=== PATIENT | female | born 1980 ===

== ENCOUNTER 2017-09-10 03:35 | Inpatient (IN) | payer MEDICAID, SELFPAY ==
[2017-09-10 06:28] VITALS: BMI 29.2
[2017-09-10] MEDS ORDERED: Lactated Ringer's 1,000 ML IV SCH (06:30)
[2017-09-10] MEDS ORDERED: Oxytocin 30 UNITS in Sodium Chloride 0.9% 500 ML IV SCH (06:30)
[2017-09-10] MEDS ORDERED: Lidocaine 1% Inj (20ml) ONE (07:06)
--- NOTE | 2017-09-10 07:17 | OBHP ---
Datetime: 09/10/2017 06:38 IP Adm Impression: Term, intrauterine ; Active labor; Intact Membranes IP Admit Plan: Admit to unit; Initiate labor protocol; Observation/Evaluation Admit Comment, IP Provider: RAMSEY# [id number] 37 y/o Female, , 3xNVD, IUP@39.2 weeks, PRADEEP 09/14/17 by first trimester U/S comes to the clini c c/o pain. pain started this morning at 2 am and 10 mins a part, 02/26 severity, patient admits to ttle bit fluid discharge and bleeding. good movement. patient denies any nausea, vomiting, feve r, chills. PNC: [facility], [place] PNL: GBS neg, HIV neg, RPR non nicole, Hep B nega PNI: Denies any issue with this so far PMH: Denies PSH: Denies Allg: NKDA Meds: PNV OBGYN: , 3xSNVD, 1 misscarriage SH: Denies any alcohol, smoking or illicit drug use FH: Denies VS: Stable, afebrile, 110/50 FHT: 133 CTX minimum Last sono 08/14: Cephalic presentation PE: unremarkable 4 cm dil, 100.-2 A/P::: 37 y/o Female, , 3xNVD, IUP@39.2 weeks, PRADEEP 09/14/17 by first trimester U/S comes to the clini c c/o pain. - Admit patient to L_D - Monitor patient - Ambulation - reassess for any changes - Monitor CTX Case discussed with Dr. Hayes --- Sav Whitman, PGY-1 [facility] - pt was seen and examined by me with PGY1 agree with note MARIANA (ACTIVE [place] BOR) Pelvic Type - PN: Adequate Extremities - PN: Normal Abdomen - PN: Normal Back - PN: Normal Breast - PN: Not Done Lungs - PN: Normal Heart - PN: Normal Thyroid - PN: Normal Neurologic - PN: Normal HEENT - PN: Normal General - PN: Normal FHR - Baseline A Provider: 130 Membranes, Provider: Intact Contraction Comments Provider: occ Comments, ACOG Physical Exam: HIV, RPR nega GBS negative , Hep B neg Pool Provider: Negative IP Hx Assessment: The History has been Reviewed and is Current EGA AdmitDate IP: 39.2 Vital Signs Provider: Reviewed IP Indication for Induction: Not Applicable IP Chief Complaint: Uterine contractions; Maternal discomfort NICHD Variability Prov Fetus A: Moderate 6-25bpm NICHD Accel Fetus A IP Provider: [id number] FHR Category Provider Fetus A: Category I NICHD Decel Fetus A IP Provider: None Dilatation, Provider: 4 Effacement, Provider: 100 Station, Provider: -1 Genitourinary Exam: Normal DTRs - PN: Normal Datetime: 09/10/2017 04:31 Presentation-Admit: Vertex
[2017-09-10 07:23] LABS: BASO % 0.3 % (0.0-2.0); EOS # 0.1 K/uL (0.0-0.7); EOS % 1.7 % (0.0-4.0); HEMATOCRIT 39.2 % (34.0-47.0); LYMPH # 1.8 K/uL (1.0-4.3); LYMPH % 23.1 % (20.0-40.0); MEAN CORPUSCULAR HEMOGLOBIN 32.9 pg (27.0-31.0); MEAN CORPUSCULAR HGB CONC 33.2 g/dL (33.0-37.0); MEAN PLATELET VOLUME 9.6 fl (7.2-11.7); MONO # 0.7 K/uL (0.0-0.8); MONO % 8.3 % (0.0-10.0); NEUT # 5.3 K/uL (1.8-7.0); NEUT % 66.6 % (50.0-75.0); RED CELL DISTRIBUTION WIDTH 13.6 % (11.5-14.5)
[2017-09-10 09:58] VITALS: RESP 18
[2017-09-10] MEDS ORDERED: Oxycodone/Acetaminophen 5/325 mg Tab PO PRN ×4 (10:26→11:22)
[2017-09-10] MEDS: Lactated Ringer's 1,000 ML IV SCH ×2 (10:50→10:51)
--- NOTE | 2017-09-10 10:53 | OBDS ---
DELIVERY PERSONNEL Delivery Doctor: Kiet Boudreaux MD Management Trainer: Aidee Urbano RN Resident: ANNABEL CalderaR MATERNAL INFORMATION Delivery Anesthesia: None Estimated Blood Loss (ml): 150 Placenta Cultured: No Maternal Complications: None Provider Comments: Pt progressed to complete and pushed to deliver a viable through clear flu id at 10: 18 am. Nuchal cord x 1 reduced. Apgars 9 and 9. Wt 2910 gms, 6#6.6. Mouth and nares bul b-suctioned. Cord clamped and cut. Infant placed on mother's abdomen. Cord blood collected. Placen ta delivered spontaenously w/ a 3vc at 10:22am. Pt and baby tolerated the procedure well. EBL 150 mL LABOR SUMMARY EDC: 09/15/2017 00:00 No. Babies in Womb: 1 Attempted: No Labor Anesthesia: None LABOR INFORMATION Reason for Induction: Not Applicable Onset of Labor: 09/10/2017 09:50 Complete Dilatation: 09/10/2017 10:11 Oxytocin: N/A Group B Beta Strep: Negative Antibiotics # of Doses: n/a Antibiotics Time of Last Dose: n/a Steroids Given: None Reason Steroids Not Administered: Not Applicable MEMBRANES Membranes Rupture Method: Artificial Rupture of Membranes: 09/10/2017 09:51 Length of Rupture (hrs): 0.45 Amniotic Fluid Color: Clear Amniotic Fluid Amount: Small Amniotic Fluid Odor: None STAGES OF LABOR Stage 1 hrs: 0 Stage 1 min: 21 Stage 2 hrs: 0 Stage 2 min: 7 Stage 3 hrs: 0 Stage 3 min: 4 Total Time in Labor hrs: 0 Total Time in Labor min: 32 VAGINAL DELIVERY Episiotomy: None Laceration Extension: N/A Laceration Type: None Laceration Repair: Not Applicable Initial Vag Sponge Count: 5 Final Vag Sponge Count: 5 Initial Vag Sharps Count: 0 Final Vag Sharps Count: 0 Sponge Count Correct: Yes Sharps Count Correct: N/A BABY A INFORMATION Delivery Date/Time: 09/10/2017 10:18 Method of Delivery: Vaginal Born in Route : No : N/A Forceps: N/A Vacuum Extraction: N/A Shoulder Dystocia : No SHOULDER DYSTOCIA BABY A Infant Delivery Date/Time: 09/10/2017 10:18 PRESENTATION/POSITION BABY A Presentation: Cephalic Breech Presentation: N/A PLACENTA INFORMATION BABY A Placenta Delivery Time : 09/10/2017 10:22 Placenta Method of Delivery: Spontaneous Placenta Status: Delivered SCORES BABY A Heart Rate 1 min: >100 bpm Resp Effort 1 min: Good Cry Reflex Irritability 1 min: Cough or Sneeze or Pulls Away Muscle Tone 1 min: Active Motion Color 1 min: Body [place], Extremities Blue Resuscitation Effort 1 min: N/A SCORE 1 MIN: 9 Heart Rate 5 min: >100 bpm Resp Effort 5 min: Good Cry Reflex Irritability 5 min: Cough or Sneeze or Pulls Away Muscle Tone 5 min: Active Motion Color 5 min: Body [place], Extremities Blue Resuscitation Effort 5 min: N/A SCORE 5 MIN: 9 INFORMATION BABY A Gestational Age at Delivery: 39.2 Gestational Status: Term Outcome : Liveborn Infant Condition : Stable Infant Sex: Male IDENTIFICATION/MEDS BABY A ID Band Number: [id number] ID Band Location: Left Leg; Left Arm WEIGHT/LENGTH BABY A Infant Birthweight (gms): 2910 Weight (lb): 6 Infant Weight (oz): 7 Length Inches: 18.50 Length cms: 47.0 CORD INFORMATION BABY A No. Cord Vessels: 3 Nuchal Cord : Around Neck x1, Tight Cord Blood Taken: Yes Infant Suction: Mouth; Nose
[2017-09-10] MEDS ORDERED: Influenza Vaccine 18yr & older 0.5 ML/45 MCG SYR IM ONE (13:29)
[2017-09-11 07:04] LABS: BASO % 0.4 % (0.0-2.0); EOS # 0.1 K/uL (0.0-0.7); EOS % 1.7 % (0.0-4.0); HEMATOCRIT 35.6 % (34.0-47.0); LYMPH # 2.4 K/uL (1.0-4.3); LYMPH % 28.5 % (20.0-40.0); MEAN CELL VOLUME 98.2 fl (81.0-99.0); MEAN CORPUSCULAR HEMOGLOBIN 32.7 pg (27.0-31.0); MEAN CORPUSCULAR HGB CONC 33.4 g/dL (33.0-37.0); MEAN PLATELET VOLUME 9.2 fl (7.2-11.7); MONO # 0.7 K/uL (0.0-0.8); MONO % 7.9 % (0.0-10.0); NEUT # 5.3 K/uL (1.8-7.0); NEUT % 61.5 % (50.0-75.0); NRBC % 0.1 % (0.0-0.0); RED CELL DISTRIBUTION WIDTH 13.8 % (11.5-14.5); WHITE BLOOD COUNT 8.5 K/uL (4.8-10.8)
--- NOTE | 2017-09-12 09:53 | OBDCSUM ---
Datetime: 09/12/2017 06:28 Discharged to, Provider: Home Follow up at, Provider: [facility]– [place][note 2] Disch Instr Activity: Normal activity; May be up to bathroom; May be up for meals; May Shower Disch Instr Diet: Regular Discharge Instructions, Provider: Routine instructions given Discharge Diagnosis, Provider: Term Delivered Discharge Time: 09/12/2017 10:00 Follow up in weeks, Provider: PP visit 4-6 weeks. NB visit 3-5 days Disch Referrals: None Contraception discussed, Prov: Yes Discharge Comment, Provider: 37 y/o female, , who delivers a healthy male via NVD on . Uncomplicated course. Mother is doing well, Lochia is minimal, pt is ambulating, to lerating PO diet, and remains afebrile. is doing well. 1. Encourage 2. Continue PNV 3. Ibuprofen for pain. Senokot for constipation. 4. Ambulatory with caution, nothing per vagina, no heavy lifting, avoid stairs, if excessive bleed ing or fever without relief from Tylenol go to ED 5. F/U at [facility]– [place][note 2] for PP visit in 6 weeks Baby in 3-4 days Patient is stable for d/c home --- Sav Whitman, PGY-1 OB Hospitalistnote; Pt seen by me on rounds this AM. Agree with note. MAHNDO Contraception after Delivery: Undecided
--- NOTE | 2017-09-12 09:53 | OBPPN ---
Datetime: 09/12/2017 06:24 PP Pain Prov: Within normal limits PP Nausea Prov: Denies PP Flatus Prov: Yes PP BM Prov: No PP Breasts Prov: Not Done PP Heart Prov: Normal PP Lungs Prov: Normal PP Abdomen/Uterus Prov: Normal PP Lochia Prov: Normal PP Vulva/Perineum Prov: Not Done PP CVA Tenderness Prov: Not Done PP Extremities Prov: Normal PP C/S Incision Prov: Not Applicable PP Progress Prov: Normal PP Impression Prov: Normal progression PP Plan Prov: Continue present management; Discharge PP Progress Note Prov: [employer] Holding[employer] # [id number] S: PPD2, s/p NVD. Admits mild pain but well controlled on meds. Pt is eating a regular diet, and a mbulating around the room without difficulties, no issue urinating. Patient is trying to breastfeed h er baby. +/- gas, BM. Denies fever, chills, headache, chest pain, dyspnea, palpitations, n/v/d/c and remains afebrile. O: VS stable GEN: NAD Cardio: S1S2 no M/G/R Resp: vesicular breathing b/l Abdomen: no tenderness to palpation. BS+, Fundus is firm, at the umbilicus Neuro: AAO x 3 Ext: no edema noted, no calf tenderness Assessment/Plan: 37 YO delivered @ 39.2 wks to a baby boy via NVD on 09/10/17. Doing well PPD2. Discharge home today Rx Ibuprofen 600mg 1 tab Encourage and ambulation Rx Senakot 17.2mg PO qHS PP CBC 11.9/35.6 Patient instructed to follow up with([facility]) for baby in 3-5 days and PP visit in 4 -6 weeks after discharge --- Sav Whitman, PGY-1 OB Hospitalistnote; Pt seen by me on rounds this AM. Agree with note. MARIANA IP PP Procedures: None Vital Signs Provider PP: Reviewed; Within Normal Limits
[2017-09-12 16:34] VITALS: BP 101/64; PULSE 76; TEMP 97.6; O2SAT 99
== END 2017-09-12 11:25 | disposition home or self-care (01) | DRG 373 ==
LOC: H.EROB2 03:35 → H.L&D 06:28 → H.OB/GYN 12:50
PROVIDERS: ADMIT Obstetrics & Gynecology; ATTEND Obstetrics & Gynecology
PROC: 10E0XZZ Delivery of Products of Conception, External Approach (ICD-10-PCS; principal; 2017-09-10)
PROC: 10907ZC Drainage of Amniotic Fluid, Therapeutic from Products of Conception, Via Natural or Artificial Opening (ICD-10-PCS; 2017-09-10)
PROC: 4A1HXCZ Monitoring of Products of Conception, Cardiac Rate, External Approach (ICD-10-PCS; 2017-09-10)
PROC: 3E0234Z Introduction of Serum, Toxoid and Vaccine into Muscle, Percutaneous Approach (ICD-10-PCS; 2017-09-10)
DX: O69.1XX0 Labor and delivery complicated by cord around neck, with compression, not applicable or unspecified (principal); O09.523 Supervision of elderly multigravida, third trimester; Z3A.39 39 weeks gestation of pregnancy; Z37.0 Single live birth; Z23 Encounter for immunization